=== PATIENT | male | born 1995 | race Caucasian/White ===

== ENCOUNTER 2019-07-15 15:10 | Emergency (ER) | payer OTHER ==
[~2019-07-15] VITALS: Ht 175.3 cm; Wt 77.3 kg
[2019-07-15 15:15] VITALS: BP 146/102
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
--- NOTE | 2019-07-15 15:40 | NUR ---
dr arrieta at bedside
[2019-07-15] MEDS ORDERED: IBUPROFEN 400 MG TAB PO ONE (15:45)
--- NOTE | 2019-07-15 15:47 | NUR ---
XRAY AT BEDSIDE
--- NOTE | 2019-07-15 15:47 | NUR ---
motrin po administered. pt tolerated well
--- NOTE | 2019-07-15 17:33 | NUR ---
PT STATES PAIN IS A 4/10 AT THIS TIME. NADR
--- NOTE | 2019-07-15 17:43 | NUR ---
PLACED RIGHT WRIST SPLINT ON PT
[2019-07-15 17:44] VITALS: BP 134/93
--- NOTE | 2019-07-15 17:44 | NUR ---
Patient discharged with v/s stable. Written and verbal after care instructions given and explained. Patient verbalized understanding. Ambulatory with steady gait. All questions addressed prior to discharge. Advised to follow up with PMD. PT GIVEN EXCUSE FROM WORK UNTIL July INSTRUCTED TO TAKE OTC MEDICATIONS FOR PAIN
== END 2019-07-15 17:44 | disposition home or self-care (01) ==
LOC: MED 15:10
DX: S63.501A Unspecified sprain of right wrist, initial encounter (principal); S80.11XA Contusion of right lower leg, initial encounter; M54.5 Low back pain; Z98.890 Other specified postprocedural states; V89.2XXA Person injured in unspecified motor-vehicle accident, traffic, initial encounter; Y93.89 Activity, other specified; Y92.410 Unspecified street and highway as the place of occurrence of the external cause; Y99.8 Other external cause status
CPT/HCPCS: 73110; 73130; 73590; 99283; Q0092

== ENCOUNTER 2022-12-09 19:04 | Emergency (ER) | payer OTHER ==
[~2022-12-09] VITALS: Ht 180.3 cm; Wt 92.1 kg
[2022-12-09 19:24] VITALS: BP 132/91
[2022-12-09] MEDS ORDERED: IBUPROFEN 600 MG TAB PO ONE (21:55)
[2022-12-09 22:00] VITALS: BP 132/91
--- NOTE | 2022-12-09 23:00 | NUR ---
D/C BY . PRESCRIBED LARRY
[2022-12-09] MEDS ORDERED: NAPR-54 PO (23:04)
== END 2022-12-09 23:10 | disposition home or self-care (01) ==
LOC: MED 19:04
DX: S16.1XXA Strain of muscle, fascia and tendon at neck level, initial encounter (principal); S23.3XXA Sprain of ligaments of thoracic spine, initial encounter; V49.88XA Car occupant (driver) (passenger) injured in other specified transport accidents, initial encounter; Y93.89 Activity, other specified; Y92.89 Other specified places as the place of occurrence of the external cause; Y99.8 Other external cause status
CPT/HCPCS: 72050; 72072; 99284